=== PATIENT | male | born 1975 | race Asian ===

== ENCOUNTER 2025-02-24 10:25 | Day surgery (SDC) | payer BC, SELFPAY ==
[2025-02-24] VITALS (8 sets, daily range): BP systolic 128–157; BP diastolic 85–101; PULSE 68–77; RESP 9–18; TEMP 36.6–36.7; O2SAT 94–100; BMI 27.9
[2025-02-24] MEDS: SODIUM CHLORIDE 0.9% 500 ML 500 ML 20 ML IV (11:55)
[2025-02-24] MEDS: MIDAZOLAM INJ 1 MG/ML VIAL 2 ML (ASD USE ONLY) 2 MG IVP (12:00)
[2025-02-24] MEDS: fentaNYL CIT INJ 50 mCg/ML AMP 2ML (ASD USE ONLY) IVP (12:01)
== END 2025-02-24 12:55 | disposition home or self-care (01) ==
PROVIDERS: PCP Student in an Organized Health Care Education/Training Program; Referring Provider Specialist; Visit Provider Specialist
PROC: 0DBE8ZX Excision of Large Intestine, Via Natural or Artificial Opening Endoscopic, Diagnostic (ICD-10-PCS; CPT 45380; principal; 2025-02-24 10:45)
DX: Z12.11 Encounter for screening for malignant neoplasm of colon (principal); K64.9 Unspecified hemorrhoids
CPT/HCPCS: 45378; A4649; J1200; J2250; J3010; J7999